=== PATIENT | female | born 1955 | race Asian ===

== ENCOUNTER 2016-10-06 17:04 | Emergency (ER) | payer BC ==
[~2016-10-06 17:04] MED LIST: DEXL60CA4 PO
== END 2016-10-06 17:50 | disposition home or self-care (01) ==
LOC: ED 17:04
DX: Z03.89 Encounter for observation for other suspected diseases and conditions ruled out (principal)

== ENCOUNTER 2016-10-21 10:44 | Outpatient (CLI) | payer BC | END 2016-10-21 12:30 | disposition home or self-care (01) | LOC: MAMMO 10:44 | DX: Z12.31 Encounter for screening mammogram for malignant neoplasm of breast (principal); Z00.00 Encounter for general adult medical examination without abnormal findings | CPT/HCPCS: G0202-TC ==

== ENCOUNTER 2016-11-03 08:18 | Outpatient (CLI) | payer BC | END 2016-11-03 19:25 | disposition home or self-care (01) | LOC: RAD 08:18 | DX: Z78.0 Asymptomatic menopausal state (principal) ==

== ENCOUNTER 2017-07-14 17:08 | Outpatient (CLI) | payer BC | END 2017-07-14 18:10 | disposition home or self-care (01) | LOC: RAD 17:08 | DX: M79.671 Pain in right foot (principal) ==

== ENCOUNTER 2018-10-09 11:01 | Emergency (ER) | payer OTHER ==
[~2018-10-09] VITALS: Ht 170.2 cm; Wt 86.2 kg
[2018-10-09 13:25] VITALS: BP 99/65; TEMP 97.3
== END 2018-10-09 13:25 | disposition home or self-care (01) ==
LOC: ED 11:01
DX: J18.9 Pneumonia, unspecified organism (principal); J98.01 Acute bronchospasm
CPT/HCPCS: 87502; 87651; 93005; 96372; 99283; J0696

== ENCOUNTER 2022-01-20 10:47 | Outpatient (CLI) | payer OTHER | END 2022-01-20 18:56 | disposition home or self-care (01) | LOC: RAD 10:47 | PROVIDERS: ATTEND Nurse Practitioner Family | DX: R05.8 Other specified cough (principal) ==

== ENCOUNTER 2022-06-02 22:25 | Emergency (ER) | payer OTHER ==
[~2022-06-02] VITALS: Ht 170.2 cm; Wt 90.7 kg
[2022-06-02 23:57] VITALS: BP 135/83; TEMP 97.9
== END 2022-06-03 00:08 | disposition home or self-care (01) ==
LOC: ED 22:25
DX: M25.511 Pain in right shoulder (principal); M75.101 Unspecified rotator cuff tear or rupture of right shoulder, not specified as traumatic
CPT/HCPCS: 96372; 99282; J1885; J2930

== ENCOUNTER 2023-01-30 02:59 | Emergency (ER) | payer OTHER ==
[~2023-01-30] VITALS: Ht 170.2 cm; Wt 91.6 kg
[2023-01-30 04:30] VITALS: BP 135/80
== END 2023-01-30 04:30 | disposition home or self-care (01) ==
LOC: ED 02:59
DX: U07.1 COVID-19 (principal); B97.89 Other viral agents as the cause of diseases classified elsewhere
CPT/HCPCS: 87502; 87635; 87651; 99283; U0003